=== PATIENT | female | born 2000 | race Caucasian/White ===

== ENCOUNTER → 2020-06-24 10:19 | Outpatient (BNVA) | payer SELFPAY | PROVIDERS: Visit Provider Nurse Practitioner Family | DX: Z20.828 Contact with and (suspected) exposure to other viral communicable diseases (principal) | CPT/HCPCS: 87635 ==

== ENCOUNTER → 2020-12-09 11:10 | Outpatient (BNVA) | payer BC, MEDICAID, SELFPAY | PROVIDERS: Visit Provider Obstetrics & Gynecology | DX: Z32.01 Encounter for pregnancy test, result positive (principal) | CPT/HCPCS: 81025 ==

== ENCOUNTER → 2021-01-13 09:10 | Outpatient (BNVA) | payer BC, MEDICAID, SELFPAY | PROVIDERS: Visit Provider Obstetrics & Gynecology | DX: O99.321 Drug use complicating pregnancy, first trimester (principal); O99.211 Obesity complicating pregnancy, first trimester; O99.340 Other mental disorders complicating pregnancy, unspecified trimester; F32.9 Major depressive disorder, single episode, unspecified; Z3A.00 Weeks of gestation of pregnancy not specified | CPT/HCPCS: 80307; 84315; 85025; 86592; 86762; 86803; 86850; 86900; 87086; 87340; 87491; 87591; 87806 ==

== ENCOUNTER → 2021-01-27 10:52 | Outpatient (BNVA) | payer BC, MEDICAID, SELFPAY | PROVIDERS: Visit Provider Obstetrics & Gynecology | DX: Z34.01 Encounter for supervision of normal first pregnancy, first trimester (principal) | CPT/HCPCS: 84315; 87491; 87591; 87661; 88175 ==

== ENCOUNTER → 2021-02-21 09:31 | Outpatient (BNVA) | payer BC, MEDICAID, SELFPAY | PROVIDERS: Visit Provider Psychiatry & Neurology Psychiatry | DX: F33.1 Major depressive disorder, recurrent, moderate (principal) | CPT/HCPCS: 99214 ==

== ENCOUNTER 2021-05-19 09:42 | Outpatient (CLI) | payer BC, MEDICAID, SELFPAY ==
[2021-05-19] VITALS (12 sets, daily range): BP systolic 131–158; BP diastolic 83–98; PULSE 75–112; RESP 20; TEMP 37.3
[2021-05-19 10:32] LABS: Basophils % 0.2 %; Eosinophils # 0.1 10^3/uL (0.0-0.8); Eosinophils % 0.9 %; Hematocrit 31.7 % (37.0-47.0); Hemoglobin 10.6 g/dL (11.5-15.3); Lymphocytes # 1.9 10^3/uL (0.8-4.8); Lymphocytes % 18.3 %; Mean Corpuscular HGB Conc 33.4 g/dL (30.0-36.0); Mean Corpuscular Hemoglobin 29.5 pg (28.0-34.0); Mean Corpuscular Volume 88.3 fL (81-99); Mean Platelet Volume 10.8 fL (7.4-10.4); Monocytes # 0.7 10^3/uL (0.2-0.9); Monocytes % 6.2 %; Neutrophils # 7.77 10^3/uL (1.8-7.7); Neutrophils % 73.7 %; Nucleated Red Blood Cells % 0 %; Platelet Count 243 10^3/cmm (130-400); Red Blood Count 3.59 10^6/uL (4.1-5.3); White Blood Count 10.5 10^3/uL (4.0-10.0)
[2021-05-19 10:44] LABS: Add Urine Microscopic? YES; Bilirubin Urine Neg (Negative); Blood Urine Neg (Negative); Glucose Urine UA Norm (Normal); Ketones Urine Negative (Negative); Leukocyte Esterase Urine Negative (Negative); Nitrate Urine Negative (Negative); Protein Urine Neg (Negative); Urine Appearance Hazy (CLEAR); Urine Color Yellow (Yellow); Urobilinogen Urine Norm (Negative); pH Urine 5 (5-7)
[2021-05-19 10:45] LABS: Add Urine Culture? No; Bacteria Urine 2+ /hpf
[2021-05-19 11:18] LABS: Urine Creatinine 114 mg/dL (28-217); Urine Protein Random 9 mg/dL
[2021-05-19 11:26] LABS: UPRO/UCREAT Ratio 0.08 mg/mg CR
[2021-05-19 11:47] LABS: Alanine Aminotransferase 8 U/L (0-33); Alkaline Phosphatase 93 IU/L (35-105); Aspartate Amino Transferase 13 U/L (0-32); Chloride 104 mmol/L (98-107); Globulin 3.1 g/dL (1.3-4.6); Glucose 80 mg/dL (65-115); Potassium 4.1 mmol/L (3.5-5.1); Sodium 135 mmol/L (136-145); Total Protein 6.1 g/dL (6.6-8.7); Uric Acid 4.6 mg/dL (2.4-5.7)
[2021-05-19 12:10] LABS: Anion Gap 16.1 (5-19); Blood Urea Nitrogen 6 mg/dL (6-20); Calcium 8.3 mg/dL (8.5-10.5); Carbon Dioxide 19 mmol/L (22-29); Glomerular Filtration Rate 275.7 mL/min (90-130); Osmolality Calculated 277 mOsm/kg (285-295); Total Bilirubin 0.2 mg/dL (0.15-1.2)
== END 2021-05-19 12:30 | disposition home or self-care (01) ==
LOC: OPOB 09:47 → OBGYN 09:49
PROVIDERS: Visit Provider Obstetrics & Gynecology
DX: O16.9 Unspecified maternal hypertension, unspecified trimester (principal); Z3A.00 Weeks of gestation of pregnancy not specified
CPT/HCPCS: 36415; 80053; 81001; 82570; 82950; 84156; 84315; 84550; 85025; 99211

== ENCOUNTER → 2021-06-17 08:38 | Outpatient (BNVA) | payer BC, MEDICAID, SELFPAY | PROVIDERS: Visit Provider Obstetrics & Gynecology | DX: Z34.01 Encounter for supervision of normal first pregnancy, first trimester (principal) | CPT/HCPCS: 84315 ==

== ENCOUNTER 2021-06-18 08:36 | Outpatient (CLI) | payer BC, MEDICAID, SELFPAY ==
--- NOTE | 2021-06-18 08:45 | US_ITS ---
WS: [id number] ULTRASOUND OB LIMITED TECHNIQUE: Limited ultrasound examination of the fetus. CLINICAL INFORMATION: O13.9 - Gestational [-induced] hypertension with... COMPARISON: June 13, 2021 FINDINGS: Cervix measures 3.9 cm Single interuterine gestation. presentation is vertex Placental location is anterior. Placenta grade: 1 heart rate 147 BPM. Normal JOSE 13.9 cm Biophysical profile 8 out of 8. breathin movement: 2 tone: 2 Amniotic fluid: 2 Gestational age 32 weeks 4 days Estimated delivery August 09, 2021 US/US OB BPP wo NST [id number] IMPRESSION: 1. Normal biophysical profile 8 out of 8 2. Anterior placenta. 3. Cervix is long and closed measuring 3.9 cm. 4. Normal JOSE 13.9 cm just below the median.
== END 2021-06-18 08:37 | disposition home or self-care (01) ==
PROVIDERS: Visit Provider Obstetrics & Gynecology
DX: O13.9 Gestational [pregnancy-induced] hypertension without significant proteinuria, unspecified trimester (principal)
CPT/HCPCS: 76819

== ENCOUNTER → 2021-06-19 08:43 | Outpatient (BNVA) | payer BC, MEDICAID, SELFPAY | PROVIDERS: Visit Provider Obstetrics & Gynecology | DX: O13.9 Gestational [pregnancy-induced] hypertension without significant proteinuria, unspecified trimester (principal); R31.9 Hematuria, unspecified; Z3A.00 Weeks of gestation of pregnancy not specified | CPT/HCPCS: 84315; 87086 ==

== ENCOUNTER 2021-06-22 12:30 | Outpatient (CLI) | payer BC, MEDICAID, SELFPAY ==
[2021-06-22 14:41] LABS: Total Volume, Urine 2250 mL; Urine Total Protein 18.3 mg/24HR (0-150); Urine Total Protein 24 Hour 411.8 mg/dL (0-150)
== END 2021-06-22 12:31 | disposition home or self-care (01) ==
LOC: LAB 12:36
PROVIDERS: PCP Obstetrics & Gynecology; Visit Provider Obstetrics & Gynecology
DX: O13.9 Gestational [pregnancy-induced] hypertension without significant proteinuria, unspecified trimester (principal)
CPT/HCPCS: 84156

== ENCOUNTER → 2021-06-30 08:27 | Outpatient (BNVA) | payer BC, MEDICAID, SELFPAY | PROVIDERS: PCP Obstetrics & Gynecology; Visit Provider Obstetrics & Gynecology | DX: O13.9 Gestational [pregnancy-induced] hypertension without significant proteinuria, unspecified trimester (principal); Z3A.00 Weeks of gestation of pregnancy not specified | CPT/HCPCS: 84315; 87086 ==

== ENCOUNTER 2021-07-03 08:00 | Outpatient (CLI) | payer BC, MEDICAID, SELFPAY ==
[2021-07-03] VITALS (18 sets, daily range): BP systolic 113–181; BP diastolic 73–103; PULSE 89–110; RESP 18; TEMP 36.9; BMI 41.5
[2021-07-03 09:29] LABS: Basophils % 0.2 %; Eosinophils # 0.1 10^3/uL (0.0-0.8); Eosinophils % 0.8 %; Hematocrit 34.8 % (37.0-47.0); Hemoglobin 11.7 g/dL (11.5-15.3); Lymphocytes # 2.5 10^3/uL (0.8-4.8); Lymphocytes % 23.2 %; Mean Corpuscular HGB Conc 33.6 g/dL (30.0-36.0); Mean Corpuscular Hemoglobin 29.3 pg (28.0-34.0); Mean Platelet Volume 11.2 fL (7.4-10.4); Monocytes # 0.7 10^3/uL (0.2-0.9); Monocytes % 6.3 %; Neutrophils # 7.29 10^3/uL (1.8-7.7); Neutrophils % 68.7 %; Nucleated Red Blood Cells % 0 %; Platelet Count 203 10^3/cmm (130-400); Red Cell Distribution Width 14.5 % (12.1-15.1); White Blood Count 10.6 10^3/uL (4.0-10.0)
[2021-07-03 09:45] LABS: Add Urine Microscopic? YES; Bilirubin Urine Neg (Negative); Blood Urine Neg (Negative); Glucose Urine UA Norm (Normal); Ketones Urine Negative (Negative); Leukocyte Esterase Urine Negative (Negative); Nitrate Urine Negative (Negative); Protein Urine 1+ (Negative); Urine Appearance Clear (CLEAR); Urine Color Yellow (Yellow); Urobilinogen Urine Norm (Negative); pH Urine 5 (5-7)
[2021-07-03 10:07] LABS: Add Urine Culture? No; Bacteria Urine 2+ /hpf; Mucus Urine TRACE /hpf
[2021-07-03 10:11] LABS: Urine Creatinine 122 mg/dL (28-217)
[2021-07-03 10:21] LABS: UPRO/UCREAT Ratio 0.92 mg/mg CR; Urine Protein Random 112 mg/dL
[2021-07-03 10:28] LABS: Alanine Aminotransferase 9 U/L (0-33); Albumin Level 3.1 g/dL (3.5-5.2); Alkaline Phosphatase 123 IU/L (35-105); Anion Gap 16.9 (5-19); Aspartate Amino Transferase 16 U/L (0-32); Blood Urea Nitrogen 6 mg/dL (6-20); Carbon Dioxide 22 mmol/L (22-29); Chloride 102 mmol/L (98-107); Globulin 3.2 g/dL (1.3-4.6); Glomerular Filtration Rate 197.8 mL/min (90-130); Glucose 98 mg/dL (65-115); Osmolality Calculated 282 mOsm/kg (285-295); Potassium 3.9 mmol/L (3.5-5.1); Sodium 137 mmol/L (136-145); Total Bilirubin 0.2 mg/dL (0.15-1.2); Total Protein 6.3 g/dL (6.6-8.7); Uric Acid 5.5 mg/dL (2.4-5.7)
[2021-07-03] MEDS: betamethasone susp 6 mg/mL 5 mL 12 MG IM (11:21)
== END 2021-07-03 12:00 | disposition home or self-care (01) ==
LOC: OPOB 08:06 → OBGYN 08:07
PROVIDERS: PCP Obstetrics & Gynecology; Visit Provider Obstetrics & Gynecology
DX: O16.9 Unspecified maternal hypertension, unspecified trimester (principal); Z3A.00 Weeks of gestation of pregnancy not specified
CPT/HCPCS: 59025; 80053; 81001; 82570; 84156; 84550; 85025; 99211; J0702

== ENCOUNTER 2021-07-04 12:38 | Outpatient (CLI) | payer BC, MEDICAID, SELFPAY ==
[2021-07-04] VITALS (16 sets, daily range): BP systolic 135–179; BP diastolic 80–98; PULSE 96–122; TEMP 26.2–37.3; BMI 41.7
[2021-07-04] MEDS: betamethasone susp 6 mg/mL 5 mL 12 MG IM (13:01)
[2021-07-04 13:31] LABS: Total Volume, Urine 1775 mL
[2021-07-04 14:00] LABS: Urine Total Protein 212.4 mg/24HR (0-150)
--- NOTE | 2021-07-04 16:23 | PM.OBGYHP ---
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 She was placed on daily ASA as well as procardia 30 mg daily. Her blood pressures have remained stable. She had a 24 hour urine protein last week which was slightly elevated at 411 and yesterday, her blood pressures were a little higher than normal 138/88. She also had more protein in her urine. She had normal preeclampsia labs. I gave her a dose of betamethasone yesterday. She was sent home with a 24 hour urine for protein and to return for an NST, blood pressure monitoring, second dose of steroids and to turn in her 24 hour urine. Her urine returned with 3770 of protein and her blood pressures were persistently elevated at 140's/90's. Since she is almost 35 weeks, has betamethasone on board and appears to be developing preeclampsia superimposed on her previous hypertension, I made the decision for delivery. Since she is one day from 35 weeks, she will be transferred to [place] for an emergency medical transfer so that she may be delivered at a tertiary care center for the baby. Present Details : 1 Review of Systems General: Reports: 10 or more systems reviewed and unremarkable except in HPI and below Medications/Allergies Home Medications Medication Instructions Recorded Confirmed Last Taken Type PNV 153-FA 400 mcg-om3 35 mg-dha 2 tab PO DAILY tab 01/13/21 07/02/21 07/03/21 23:30 History 25 mg-epa 5 mg-fish oil chew tablet aspirin 81 mg tablet,delayed 81 mg PO DAILY 05/15/21 07/04/21 07/03/21 23:30 History release nifedipine 30 mg tablet,extended 30 mg PO DAILY #30 tab 05/20/21 07/02/21 07/03/21 23:30 Rx release 24 hr ferrous sulfate 325 mg (65 mg 325 mg PO BID tab 05/26/21 07/02/21 07/03/21 23:30 History iron) tablet Allergies Allergy/AdvReac Type Severity Reaction Status Date / Time No Known Allergies Allergy Verified 06/27/21 08:29 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 Nogueira/Dr. 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 Estimated Delivery Date Method Current WG Current Estimate 08/09/21 LMP (Certain) 34w 6d Other Estimates 08/05/21 Ultrasound #1 35w 3d Expected Delivery Route/Plan vaginal Specific Issues/Plans DEPRESSION OBESITY ANEMIA MARIJUANA USE Vitals/I&O/Wt Last Vital Signs Temp 98.2 F 07/04/21 12:53 Pulse 101 H 07/04/21 16:13 BP 135/97 07/04/21 16:13 Weight last 48 hrs Weight 243 lb Physical Exam Const: COMMON NORMALS: no acute distress, patient oriented x3, alert and well nourished GENERAL APPEARANCE: cooperative, comfortable, well kempt and well developed ORIENTATION/CONSCIOUSNESS: Yes awake, Yes oriented to person, Yes oriented to place and Yes oriented to time Resp: COMMON NORMALS: normal respiratory effort EFFORT & INSPECTION: Yes able to speak in complete sentences GI: COMMON NORMALS: Soft to palpation and non-tender INSPECTION: Yes gravid abdomen Extremity: COMMON NORMALS: no calf tenderness Psych: COMMON NORMALS: mental status grossly normal, Normal thought process present, cooperative, normal affect and speech normal APPEARANCE: Yes grossly normal and Yes well kempt ATTITUDE: Yes calm and Yes engaged ACTIVITY/MOTOR BEHAVIOR: Yes appropriate eye contact SPEECH: Yes normal speech A&P Assessment and plan (1) Preeclampsia complicating hypertension: The patient has developed preeclampsia superimposed on gestational hypertension. I have discussed with her the benefits of delivery at a tertiary care center where her baby will have a higher accuity of care in the nursery. She will be transferred to [facility] under the care of Dr. Solorzano. This is an emergency medical transfer to a hospital with a higher accuity of care than we can provide here. Status: Acute Attestations Medical Necessity Statement*: The patient is being transferred Coding Level of Care Code Acute Cosmetic Consultant for [facility] Diagnoses Preeclampsia complicating hypertension O11.9
--- NOTE | 2021-07-04 16:39 | P.DS_ITS ---
Discharge Providers Date of Discharge: July 04, 2021 Attending Provider at Discharge: Venice Gibbs MD Primary Care Provider: Venice Gibbs MD Diagnoses at Discharge Discharge Diagnosis (1) Preeclampsia complicating hypertension: Status: Acute Reason for Visit Reason for Visit: ELEVATED B/P BETAMETHASONE SHOT, NST Hospital Course Hospital Course Hilary Flores is a 21 year old female who developed hypertension around 20 weeks gestation of . She was placed on daily ASA as well as procardia 30 mg daily. Her blood pressures have remained stable. She had a 24 hour urine protein last week which was slightly elevated at 411 and yesterday, her blood pressures were a little higher than normal 138/88. She also had more protein in her urine. She had normal preeclampsia labs. I gave her a dose of betamethasone yesterday. She was sent home with a 24 hour urine for protein and to return for an NST, blood pressure monitoring, second dose of steroids and to turn in her 24 hour urine. Her urine returned with 3770 of protein and her blood pressures were persistently elevated at 140's/90's. Since she is almost 35 weeks, has betamethasone on board and appears to be developing preeclampsia superimposed on her previous hypertension, I made the decision for delivery. Since she is one day from 35 weeks, she will be transferred to [facility] for an emergency medical transfer so that she may be delivered at a tertiary care center for the baby. Discharge Data Data Completed and Pending: Labs from last 24 hours 07/04/21 12:40 Urine Total Volume 1775 Ur Total Protein 2 4 Hr 3770.1 H Urine Total Protei n 212.4 H Vitals: Last Vital Signs Temp 98.2 F 07/04/21 12:53 Pulse 107 H 07/04/21 16:32 BP 139/90 07/04/21 16:32 Discharge Plan Discharge Patient Disposition: Home Prescriptions: No Action Gummies 400 mcg-35 mg- 25 mg-5 mg tablet,chewable 2 tab PO DAILY RF: 0 aspirin 81 mg tablet,delayed release (DR/EC) 81 mg PO DAILY RF: 0 ferrous sulfate 325 mg (65 mg iron) tablet 325 mg PO BID RF: 0 nifedipine [Procardia XL] 30 mg tablet extended release 24hr 30 mg PO DAILY Qty: 30 RF: 6 Discharge Attestations Time Spent in Discharge Care*: less than 30 min Quality Metrics Clinical Quality Measures During this hospital stay, did patient experience: None Coding Level of Care Code Acute Chg FW DC note Diagnoses Preeclampsia complicating hypertension O11.9
== END 2021-07-04 16:55 | disposition intermediate care facility (04) ==
LOC: OPOB 12:42 → OBGYN 12:44
PROVIDERS: Absent Provider Obstetrics & Gynecology; PCP Obstetrics & Gynecology; Visit Provider Obstetrics & Gynecology
DX: O11.3 Pre-existing hypertension with pre-eclampsia, third trimester (principal); Z3A.34 34 weeks gestation of pregnancy
CPT/HCPCS: 59025; 84156; 96372; 99211; J0702

== ENCOUNTER → 2021-07-14 10:06 | Outpatient (BNVA) | payer BC, MEDICAID, SELFPAY | PROVIDERS: PCP Obstetrics & Gynecology; Visit Provider Obstetrics & Gynecology | DX: O11.9 Pre-existing hypertension with pre-eclampsia, unspecified trimester (principal); Z3A.00 Weeks of gestation of pregnancy not specified | CPT/HCPCS: 84315; 87081; 87635 ==

== ENCOUNTER 2021-07-21 01:45 | Inpatient (IN) | payer BC, MEDICAID, SELFPAY ==
[2021-07-20 23:58] VITALS: TEMP 36.9
[2021-07-21] VITALS (66 sets, daily range): BP systolic 111–165; BP diastolic 64–106; PULSE 74–105; RESP 17; TEMP 36.2–36.4; BMI 42.9
[2021-07-21 00:51] LABS: Basophils % 0.3 %; Eosinophils # 0.1 10^3/uL (0.0-0.8); Eosinophils % 0.6 %; Hematocrit 34.2 % (37.0-47.0); Hemoglobin 11.4 g/dL (11.5-15.3); Lymphocytes # 2.7 10^3/uL (0.8-4.8); Lymphocytes % 21.4 %; Mean Corpuscular HGB Conc 33.3 g/dL (30.0-36.0); Mean Corpuscular Hemoglobin 29.2 pg (28.0-34.0); Mean Corpuscular Volume 87.5 fl (81-99); Mean Platelet Volume 11.9 fL (7.4-10.4); Monocytes # 0.7 10^3/uL (0.2-0.9); Monocytes % 5.8 %; Neutrophils # 8.89 10^3/uL (1.8-7.7); Neutrophils % 71.4 %; Nucleated Red Blood Cells % 0 %; Platelet Count 226 10^3/cmm (130-400); Red Blood Count 3.91 10^6/uL (4.1-5.3); Red Cell Distribution Width 15.4 % (12.1-15.1); White Blood Count 12.5 10^3/uL (4.0-10.0)
[2021-07-21 01:01] LABS: Add Urine Microscopic? YES; Bilirubin Urine Neg (Negative); Blood Urine Neg (Negative); Glucose Urine UA Norm (Normal); Ketones Urine Negative (Negative); Leukocyte Esterase Urine Negative (Negative); Nitrate Urine Negative (Negative); Protein Urine 3+ (Negative); Urine Appearance SL Hazy (CLEAR); Urine Color Yellow (Yellow); Urobilinogen Urine Norm (Negative); pH Urine 6 (5-7)
[2021-07-21 01:06] LABS: Add Urine Culture? No; Bacteria Urine 4+ /hpf; RBC Urine 0-4 /hpf (0-2); Squamous Epithelial Cell Urine TOO NUMEROUS TO CNT /hpf (0-5); WBC Urine 0-4 /hpf (0-5)
[2021-07-21 01:12] LABS: Urine Creatinine 62 mg/dL (28-217)
[2021-07-21 01:15] LABS: Alanine Aminotransferase 11 U/L (0-33); Albumin Level 2.8 g/dL (3.5-5.2); Alkaline Phosphatase 128 IU/L (35-105); Anion Gap 15.3 (5-19); Aspartate Amino Transferase 16 U/L (0-32); Blood Urea Nitrogen 12 mg/dL (6-20); Calcium 8.7 mg/dL (8.5-10.5); Carbon Dioxide 21 mmol/L (22-29); Chloride 104 mmol/L (98-107); Globulin 3.2 g/dL (1.3-4.6); Glomerular Filtration Rate 152.9 mL/min (90-130); Glucose 82 mg/dL (65-115); Osmolality Calculated 281 mOsm/kg (285-295); Potassium 4.3 mmol/L (3.5-5.1); Sodium 136 mmol/L (136-145); Total Bilirubin 0.3 mg/dL (0.15-1.2); Uric Acid 6.2 mg/dL (2.4-5.7)
[2021-07-21 01:26] LABS: UPRO/UCREAT Ratio 4.06 mg/mg CR; Urine Protein Random 252 mg/dL
[2021-07-21] MEDS: miSOPROStol 100 mcg tablet 25 MCG VAGINAL ×3 (01:31→21:18)
[2021-07-21 03:24] LABS: Amphetamines Screen Urine Negative (Negative); Barbiturates Screen Urine Negative (Negative); Benzodiazepines Screen Urine Negative (Negative); Cocaine Screen Urine Negative (Negative); Opiate Screen Urine Negative (Negative); PCP Screen Urine Negative (Negative); THC Screen Urine Negative (Negative)
--- NOTE | 2021-07-21 07:42 | PM.OPHPUD ---
Labor & Delivery H&P Update Date of Procedure: July 21, 2021 Date H&P Performed: 07/17/21 H&P update information: I have reviewed H&P completed within last 30 days, I have examined patient prior to procedure and Changes to prior documentation as noted here Changes to previous documentation: The patient is being admitted for gestational hypertension. Her blood pressures are normal, but her urine protein/creatinine ratio is elevated at 4.06. The patient has no symptoms of preeclampsia and all other labs are normal, as well as blood pressures. Admission Diagnosis: iup at 37 weeks, 2 days Related Problem List Diagnoses (1) Obesity affecting : (2) Anemia affecting : (3) Major depressive disorder, recurrent, moderate: (4) Gestational hypertension: (5) Proteinuria affecting :
--- NOTE | 2021-07-21 14:13 | P.PN_ITS ---
Vitals/I&O/Wt Last Vital Signs Temp 98.4 F 07/20/21 23:58 Pulse 80 07/21/21 12:42 Resp 17 07/21/21 02:16 BP 145/87 07/21/21 12:42 Weight last 48 hrs Weight 250 lb Physical Exam Narrative: EXAM NARRATIVE: The patient received a dose of cytotec overnight. She is having breakfast and we will resume cytotec induction Const: COMMON NORMALS: no acute distress, patient oriented x3, no limitations, alert and well nourished GENERAL APPEARANCE: cooperative, comfortable, well kempt and well developed ORIENTATION/CONSCIOUSNESS: Yes awake, Yes oriented to person, Yes oriented to place and Yes oriented to time Resp: COMMON NORMALS: normal respiratory effort EFFORT & INSPECTION: Yes able to speak in complete sentences GI: COMMON NORMALS: Soft to palpation and non-tender PALPATION: Yes Soft to palpation Extremity: COMMON NORMALS: no calf tenderness Neuro: COMMON NORMALS: patient oriented x3 SENSORIUM/ORIENTATION: Yes alert, Yes oriented to person, Yes oriented to place and Yes oriented to time Psych: APPEARANCE: Yes well kempt Data : 07/21/21 00:31 07/21/21 00:31 A&P Assessment and plan (1) Gestational hypertension: plan continued cytotec induction, then switch to pitocin watch carefully for signs of preeclampsia still anticipate a normal vaginal deliver. 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
[2021-07-21] MEDS: labetalol 5 mg/mL SDV 20mL 20 MG IVP (21:28)
[2021-07-21] MEDS: magnesium sulfate premix 4 GM/100 ML PREMIX IV (21:42)
[2021-07-21] MEDS: dextrose 5%-lactated ringers 1,000 ML 125 ML IV (21:43)
[2021-07-21] MEDS: magnesium sulfate premix 20 GM/500 ML BAG IV (22:15)
[2021-07-22] VITALS (109 sets, daily range): BP systolic 101–157; BP diastolic 54–104; PULSE 71–122; RESP 16–18; TEMP 36.5–37; O2SAT 90–100
[2021-07-22] MEDS: miSOPROStol 100 mcg tablet 25 MCG VAGINAL (01:30)
[2021-07-22 02:43] LABS: Magnesium Level (OB Only) 4.3 mg/dL (5.0-7.5)
[2021-07-22] MEDS: oxytocin 30 UNIT/500 ML BAG IV (08:30)
[2021-07-22] MEDS: NIFEdipine ER (24 hr) 30 mg Tablet PO (08:33)
[2021-07-22] MEDS: magnesium sulfate premix 20 GM/500 ML BAG IV ×2 (09:07→18:34)
[2021-07-22 09:41] LABS: Magnesium Level (OB Only) 5.5 mg/dL (5.0-7.5)
[2021-07-22] MEDS: dextrose 5%-lactated ringers 1,000 ML 72 ML IV (09:59)
--- NOTE | 2021-07-22 12:17 | ANES.PREANE2 ---
Pre-Anesthetic Assessment Pre-Anesthetic Assessment: Height/Weight: Height 1.63 m Weight 113.398 kg Temp Pulse Resp BP 98.6 F 98 18 144/96 07/22/21 08:05 07/22/21 12:05 07/22/21 08:05 07/22/21 12:05 Preop Diagnosis: IUP Proposed Procedure: CHANCE Was Beta Maximo taken within 24 hours: N/A Was Clonidine taken within 24 hours: N/A Last Intake: 18:00 (07/21/21) Social: Social History: No alcohol and No tobacco Exam: Pre-Anes Outpt Exam: alert, oriented x 3 and regular rate & rhythm Airway: Submandibular: WNL Cervical ROM: WNL MP: 3 History/ROS: No significant history except as noted Pulmonary: Pulmonary: None reported CV/HEM: CV/HEM: None reported : : None reported Hepatic: Hepatic: None reported GI: GI: None reported Metabolic: Metabolic: Thyroid Musc/skel: Musc/skel: None reported Neuropsych: Neuropsych: Depression Anesthetic Plan: ASA status: 3 Anesthesia: Anesthesia Evaluation and Regional (specify below) (epidural) Risk of > 500 ml blood loss (7ml/kg in children): No Meds/Allergies Current Medications: Current Medications Generic Name Dose Route Start Last Admin Trade Name Freq PRN Reason Stop Dose Admin Dextrose/Lactated Ringer's 1,000 mls @ 125 m ls/hr 07/21/21 21:15 07/22/21 10:30 Dextrose 5%-Lact ated Ringers IV 70 mls/hr .Q8H SOPHIE Infusion Magnesium Sulfate 20 gm in 500 mls @ 50 mls/hr 07/21/21 21:15 07/22/21 10:30 Magnesium Sulfat e Premix IV 50 mls/hr .Q10H SOPHIE Infusion Oxytocin 30 unit in 500 ml s @ 1 mls/hr 07/22/21 08:00 07/22/21 10:30 Pitocin IV 5 milliunit/min .Q24H SOPHIE 5 mls/hr Titration Protocol 1 MILLIUNIT/MIN Labetalol HCl 20 mg 07/21/21 01:39 07/21/21 21:28 Labetalol 5 Mg/M l Sdv 20ml IVP 20 mg PRN PRN Administration HYPERTENSION Protocol Nifedipine 30 mg 07/21/21 09:00 07/22/21 08:33 Nifedipine Er (2 4 Hr) 30 Mg Tablet PO 30 mg DAILY SOPHIE Administration PFSH Anesthesia PFSH: Medical History Anemia Major depressive disorder, recurrent, moderate No pertinent past medical history neghx: htn,dm,thyroid,dvt/pe PCP: Dr. Nogueira/Dr. Glover Surgical History History of surgery on arm Right arm @ 5 y/o Family History Family/Other Diabetes Maternal and Paternal side in general Father Hypertension Denies family history of Colon cancer Ovarian cancer Heart disease Hypercholesteremia Breast cancer Uterine cancer Thyroid disease Stroke Social History Smoking and tobacco status: never smoked Alcohol intake: never Female Reproductive History: : 1 Data Anesthesia CBC & Chem 7: 07/21/21 00:31 07/21/21 00:31 Other Labs: Laboratory Results - last 48 hr 07/21/21 07/21/21 07/21/21 00:05 00:05 00:05 WBC RBC Hgb Hct MCV MCH MCHC RDW Plt Count MPV Neut % (Auto) Lymph % (Auto) [place] % (Auto) Eos % (Auto) Baso % (Auto) Neut # (Auto) Lymph # (Auto) [place] # (Auto) Eos # (Auto) Baso # (Auto) Nucleated RBC % (auto) Nucleated RBCs # Sodium Potassium Chloride Carbon Dioxide Anion Gap BUN Creatinine GFR Calculation Glucose Calculated Osmolality Uric Acid Calcium Magnesium Total Bilirubin AST ALT Alkaline Phosphatase Total Protein Albumin Globulin Urine Color Yellow Urine Appearance Sl hazy Urine pH 6 Ur Specific [place] 1.010 Urine Protein 3+ H Urine Glucose (UA) Norm Urine Ketones Negative Urine Blood Neg Urine Nitrate Negative Urine Bilirubin Neg Urine Urobilinogen Norm Ur Leukocyte Esterase Negative Urine RBC 0-4 H Urine WBC 0-4 H Ur Squamous Epith Cells Too numerous to cnt H Amorphous Sediment Not Reportable Urine Bacteria 4+ H U Random Total Protein 252 Urine Creatinine 62 Protein/Creatinin Ratio 4.06 Urine Opiates Screen Negative Ur Barbiturates Screen Negative Ur Phencyclidine Scrn Negative Ur Amphetamines Screen Negative U Benzodiazepines Scrn Negative Urine Cocaine Screen Negative U Marijuana (THC) Screen Negative 07/21/21 07/21/21 07/22/21 00:31 00:31 02:00 WBC 12.5 H RBC 3.91 L Hgb 11.4 L Hct 34.2 L MCV 87.5 MCH 29.2 MCHC 33.3 RDW 15.4 H Plt Count 226 MPV 11.9 H Neut % (Auto) 71.4 Lymph % (Auto) 21.4 [place] % (Auto) 5.8 Eos % (Auto) 0.6 Baso % (Auto) 0.3 Neut # (Auto) 8.89 H Lymph # (Auto) 2.7 [place] # (Auto) 0.7 Eos # (Auto) 0.1 Baso # (Auto) 0.0 Nucleated RBC % (auto) 0 Nucleated RBCs # 0.0 Sodium 136 Potassium 4.3 Chloride 104 Carbon Dioxide 21 L Anion Gap 15.3 BUN 12 Creatinine 0.5 GFR Calculation 152.9 H Glucose 82 Calculated Osmolality 281 L Uric Acid 6.2 H Calcium 8.7 Magnesium 4.3 L* Total Bilirubin 0.3 AST 16 ALT 11 Alkaline Phosphatase 128 H Total Protein 6.0 L Albumin 2.8 L Globulin 3.2 Urine Color Urine Appearance Urine pH Ur Specific [place] Urine Protein Urine Glucose (UA) Urine Ketones Urine Blood Urine Nitrate Urine Bilirubin Urine Urobilinogen Ur Leukocyte Esterase Urine RBC Urine WBC Ur Squamous Epith Cells Amorphous Sediment Urine Bacteria U Random Total Protein Urine Creatinine Protein/Creatinin Ratio Urine Opiates Screen Ur Barbiturates Screen Ur Phencyclidine Scrn Ur Amphetamines Screen U Benzodiazepines Scrn Urine Cocaine Screen U Marijuana (THC) Screen 07/22/21 08:57 WBC RBC Hgb Hct MCV MCH MCHC RDW Plt Count MPV Neut % (Auto) Lymph % (Auto) [place] % (Auto) Eos % (Auto) Baso % (Auto) Neut # (Auto) Lymph # (Auto) [place] # (Auto) Eos # (Auto) Baso # (Auto) Nucleated RBC % (auto) Nucleated RBCs # Sodium Potassium Chloride Carbon Dioxide Anion Gap BUN Creatinine GFR Calculation Glucose Calculated Osmolality Uric Acid Calcium Magnesium 5.5 Total Bilirubin AST ALT Alkaline Phosphatase Total Protein Albumin Globulin Urine Color Urine Appearance Urine pH Ur Specific [place] Urine Protein Urine Glucose (UA) Urine Ketones Urine Blood Urine Nitrate Urine Bilirubin Urine Urobilinogen Ur Leukocyte Esterase Urine RBC Urine WBC Ur Squamous Epith Cells Amorphous Sediment Urine Bacteria U Random Total Protein Urine Creatinine Protein/Creatinin Ratio Urine Opiates Screen Ur Barbiturates Screen Ur Phencyclidine Scrn Ur Amphetamines Screen U Benzodiazepines Scrn Urine Cocaine Screen U Marijuana (THC) Screen Cardiac Studies: No Data to Display
[2021-07-22 17:31] LABS: Magnesium Level (OB Only) 6.9 mg/dL (5.0-7.5)
[2021-07-22] MEDS: lactated ringers 1,000 ML 999 ML IV (18:15)
[2021-07-22 23:54] LABS: Magnesium Level (OB Only) 7.6 mg/dL (5.0-7.5)
[2021-07-23] VITALS (40 sets, daily range): BP systolic 125–159; BP diastolic 63–99; PULSE 84–137; RESP 16–18; TEMP 36.5–37.5; O2SAT 96–99
[2021-07-23] MEDS: lactated ringers 1,000 ML 999 ML IV (00:15)
[2021-07-23] MEDS: dextrose 5%-lactated ringers 1,000 ML 92 ML IV (00:27)
[2021-07-23] MEDS: carboprost tromethamine 250 mcg/mL Amp IM (02:23)
[2021-07-23] MEDS: miSOPROStol 200 mcg Tablet 800 MCG PR (02:23)
--- NOTE | 2021-07-23 02:32 | PM.DELIVERY ---
Delivery Note: Date of delivery: July 23, 2021 Pre-delivery diagnoses: iup @ 37 weeks 4 days, severe preeclampsia Post-delivery diagnoses: same- delivered Procedure: Op report anesthesia: Epidural Delivering Physician: juana Estimated blood loss (mL): 575 Findings: Term female in the cephalic presentation. uterine atony due to magnesium sulfate Pre-Delivery Course: The patient was admitted for induction at term for gestational hypertension and proteinuria. Her blood pressures were actually normal on admission. The patient had just spent two weeks inpatient in [place] for elevated blood pressures and proteinuria. At about 24 hours of induction, the patient had some severe blood pressures and magnesium sulfate was ordered. She received an epidural for pain management. She had complete cervical dilation and began to push Delivery: The patient had complete cervical dilation and began to push. The head delivered in the KUMAR position over an intact perineum under epidural anesthesia. The nose and mouth were bulb suctioned. The shoulders and body delivered atraumatically. The baby was placed onto the mother's abdomen. The baby had bradycardia shortly after . The cord was quickly clamped and cut and the baby was taken to the warmer for resuscitation. The placenta delivered manually due to the cord tearing from a velamentous insertion. It was inspected and found to be intact. There was uterine atony. 800 mcg of cytotec was given rectally. Hemabate was givne IM and TXA was given IV. Inspection of the perineum revealed a small second-degree laceration. This was repaired in the usual fashion. Vaginal bleeding was controlled at this time. Estimated blood loss 575 mL weighed. Apgars on baby were 3 at 1 minute and 9 at 5 minutes. Weight of baby is next pounds 5 ounces. Mother and baby were stable post delivery. 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
[2021-07-23] MEDS: oxytocin 30 UNIT/500 ML BAG 600 UNIT IV (02:46)
[2021-07-23] MEDS: diphenoxylate/atropine Tablet 1 TAB PO (04:03)
[2021-07-23 06:30] LABS: Magnesium Level (OB Only) 6.2 mg/dL (5.0-7.5)
[2021-07-23] MEDS: ondansetron 2 mg/ML SDV 2 mL 4 MG IVP (07:51)
[2021-07-23] MEDS: magnesium sulfate premix 20 GM/500 ML BAG IV (07:58)
[2021-07-23] MEDS: dextrose 5%-lactated ringers 1,000 ML 100 ML IV (10:11)
[2021-07-23] MEDS: prenatal vitamin Capsule 1 CAP PO (10:12)
[2021-07-23] MEDS: docusate sodium 100 mg Capsule PO (10:12)
[2021-07-23] MEDS: NIFEdipine ER (24 hr) 30 mg Tablet PO (10:12)
[2021-07-23] MEDS: ibuprofen 800 mg tablet PO ×3 (10:12→20:49)
[2021-07-23 12:10] LABS: Magnesium Level (OB Only) 5.3 mg/dL (5.0-7.5)
[2021-07-23 18:24] LABS: Hematocrit 31.9 % (37.0-47.0); Hemoglobin 10.7 g/dL (11.5-15.3); Mean Corpuscular HGB Conc 33.5 g/dL (30.0-36.0); Mean Corpuscular Hemoglobin 29.8 pg (28.0-34.0); Mean Corpuscular Volume 88.9 fl (81-99); Mean Platelet Volume 11.8 fL (7.4-10.4); Platelet Count 272 10^3/cmm (130-400); Red Blood Count 3.59 10^6/uL (4.1-5.3); White Blood Count 19.9 10^3/uL (4.0-10.0)
[2021-07-23 19:03] LABS: Magnesium Level (OB Only) 4.8 mg/dL (5.0-7.5)
[2021-07-24] VITALS (9 sets, daily range): BP systolic 134–170; BP diastolic 82–93; PULSE 72–93; RESP 16; TEMP 36.8–36.9
[2021-07-24 01:41] LABS: Magnesium Level (OB Only) 4.2 mg/dL (5.0-7.5)
[2021-07-24] MEDS: NIFEdipine ER (24 hr) 30 mg Tablet PO (08:45)
[2021-07-24] MEDS: ibuprofen 800 mg tablet PO ×2 (08:45→16:21)
[2021-07-24] MEDS: prenatal vitamin Capsule 1 CAP PO (08:45)
[2021-07-24] MEDS: docusate sodium 100 mg Capsule PO (08:45)
--- NOTE | 2021-07-24 11:03 | PM.DCS ---
Discharge Providers Date of Admission: 07/21/21 01:45 Date of Discharge: July 24, 2021 Attending Provider at Admission: Venice Gibbs MD Attending Provider at Discharge: Venice Gibbs MD Primary Care Provider: Venice Gibbs MD Diagnoses at Discharge Discharge Diagnosis (1) Gestational hypertension: Status: Acute Reason for Visit Reason for Visit: IOL Hospital Course Hospital Course The patient was admitted for induction at 37 weeks for gestational hypertension and proteinuria. Her blood pressures were actually normal on admission. The patient had just spent two weeks inpatient in [place] for elevated blood pressures and proteinuria. At about 24 hours of induction, the patient had some severe blood pressures and magnesium sulfate was ordered. She received an epidural for pain management. She had spontaneous delivery of a term . She received 24 hours of magnesium sulfate post and was ready for discharge on day #1 Her blood pressures have remained stable on nifedipine. She has also had excellent diuresis. Physical Exam Narrative: EXAM NARRATIVE: The patient is doing well this morning. No concerns Const: COMMON NORMALS: no acute distress, patient oriented x3, no limitations, alert and well nourished GENERAL APPEARANCE: cooperative, comfortable, well kempt and well developed ORIENTATION/CONSCIOUSNESS: Yes awake, Yes oriented to person, Yes oriented to place and Yes oriented to time Resp: COMMON NORMALS: normal respiratory effort EFFORT & INSPECTION: Yes able to speak in complete sentences GI: COMMON NORMALS: Soft to palpation and non-tender PALPATION: Yes Soft to palpation Extremity: COMMON NORMALS: no calf tenderness Neuro: COMMON NORMALS: patient oriented x3 SENSORIUM/ORIENTATION: Yes alert, Yes oriented to person, Yes oriented to place and Yes oriented to time Psych: APPEARANCE: Yes well kempt Urinary Catheter Management^: Prabhakar Latex Free: Cath Placed During This Visit: yes, but has since been removed by the nurse Reason for Continuing Indwelling Catheter: Accurate Measurement of Urinary Output in Critically Ill Patients Urinary Catheter Date of Insertion: 07/21/21 Urinary Catheter Time of Insertion: 22:00 Date Urinary Catheter Removed: 07/23/21 Time Urinary Catheter Discontinued: 01:50 Prabhakar: Cath Placed During This Visit: yes, but has since been removed by the nurse Reason for Continuing Indwelling Catheter: Accurate Measurement of Urinary Output in Critically Ill Patients Urinary Catheter Date of Insertion: 07/23/21 Urinary Catheter Time of Insertion: 03:30 Date Urinary Catheter Removed: 07/24/21 Time Urinary Catheter Discontinued: 02:10 Discharge Data Data Completed and Pending: Labs from last 24 hours 07/24/21 07/23/21 07/23/21 00:46 18:00 18:00 WBC 19.9 H RBC 3.59 L Hgb 10.7 L Hct 31.9 L MCV 88.9 MCH 29.8 MCHC 33.5 RDW 16.0 H Plt Count 272 MPV 11.8 H Magnesium 4.2 L* 4.8 L* 07/23/21 11:05 WBC RBC Hgb Hct MCV MCH MCHC RDW Plt Count MPV Magnesium 5.3 Vitals: Last Vital Signs Temp 98.4 F 07/24/21 01:03 Pulse 90 07/24/21 09:48 Resp 17 07/23/21 18:49 BP 158/88 07/24/21 09:48 Pulse Ox 96 07/23/21 18:49 Discharge Plan Discharge Patient Disposition: Home Condition: Stable Prescriptions: Continued Gummies 400 mcg-35 mg- 25 mg-5 mg tablet,chewable 2 tab PO DAILY RF: 0 aspirin 81 mg tablet,delayed release (DR/EC) 81 mg PO DAILY RF: 0 ferrous sulfate 325 mg (65 mg iron) tablet 325 mg PO BID RF: 0 nifedipine [Procardia XL] 30 mg tablet extended release 24hr 30 mg PO DAILY Qty: 30 RF: 6 Discharge Orders: Discharge Order (Routine); Ordered 07/24/21 Ordered By: Venice Gibbs Patient Instructions: Opioid Safety Discharge Attestations Time Spent in Discharge Care*: less than 30 min Quality Metrics Clinical Quality Measures During this hospital stay, did patient experience: None Coding Level of Care Code Acute g FW DC note Diagnoses Gestational hypertension O13.9
--- NOTE | 2021-07-24 14:20 | ANE.PACU2 ---
Inpatient post-anesthesia follow up: Airway intact: Yes Vital signs: Temperature 98.3 F Pulse Rate 72 Respiratory Rate 16 Blood Pressure 134/86 Pulse Oximetry 96 Oxygen Delivery Me thod Room Air Oxygen Flow Rate Fraction of Inspir ed Oxygen Hydration adequate: Yes Nausea and vomiting: No Pain level: 2 Mental status: Baseline
== END 2021-07-24 17:50 | disposition home or self-care (01) | DRG 806 ==
LOC: OPOB 01:46 → OBGYN 01:46
PROVIDERS: Obstetrics & Gynecology; Admitting Provider Obstetrics & Gynecology; PCP Obstetrics & Gynecology; Visit Provider Obstetrics & Gynecology
DX: O13.4 Gestational [pregnancy-induced] hypertension without significant proteinuria, complicating childbirth (principal); F33.9 Major depressive disorder, recurrent, unspecified; Z37.0 Single live birth; O99.214 Obesity complicating childbirth; O99.02 Anemia complicating childbirth; D64.9 Anemia, unspecified; O99.344 Other mental disorders complicating childbirth; O70.1 Second degree perineal laceration during delivery; Z3A.37 37 weeks gestation of pregnancy
CPT/HCPCS: 36415; 51702; 59409; 80053; 80306; 81001; 82570; 83735; 84156; 84550; 85025; 85027; 98960; J2405; J2795; J3475; J3490